=== PATIENT | female | born 2005 | race Caucasian/White ===

== ENCOUNTER 2025-04-19 18:58 | Emergency (ER) | payer OTHER, SELFPAY ==
[2025-04-19 19:06] VITALS: BP 129/77; PULSE 88; TEMP 37.5; O2SAT 98; BMI 43.6
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
--- OUTSIDE RECORDS SUMMARY | 2025-04-19 19:42 | XMS_ITS | Clinical Summary ---
Author Organization [facility] Healthcare Address [address] [place] [address] Care Team Providers Care Director Telemetry Name Role Phone Unavailable Primary Care Provider Unavailabl e Social History Tobacco UseTypesPacks/DayYears UsedDateSmoking Tobacco: Never Assessed CommentsUnknownSex and Gender InformationValueDate RecordedSex Assigned at Not on fileLegal PxbMiwmqj99/15/2023 8:24 PM EDTGender IdentityNot on fileSexual OrientationNot on file Last Filed Vital Signs Vital SignReadingTime TakenCommentsBlood Sibfpiga667/7906/06/2018 12:00 PM EST Pulse--Temperature--Respiratory Rate--Oxygen Saturation--Inhaled Oxygen Concentration--Lkudvn02.1 kg (159 lb)06/06/2018 12:00 PM CFUNhwhns764.6 cm (5' 4 )06/06/2018 12:00 PM ESTBody Mass Index27.29006/06/2018 12:00 PM EST Plan of Treatment Not on file Insurance
--- NOTE | 2025-04-19 20:31 | PC.NURSE ---
i gave this patient verbal and written discharge orders and this patient voices yes to understanding these. at time of discharge this patient voices no concerns,needs and shows no signs of distress
== END 2025-04-19 20:30 | disposition home or self-care (01) ==
PROVIDERS: Emergency Provider Emergency Medicine
DX: S46.911A Strain of unspecified muscle, fascia and tendon at shoulder and upper arm level, right arm, initial encounter (principal); S20.219A Contusion of unspecified front wall of thorax, initial encounter; S29.012A Strain of muscle and tendon of back wall of thorax, initial encounter; V48.5XXA Car driver injured in noncollision transport accident in traffic accident, initial encounter
CPT/HCPCS: 99281